=== PATIENT | female | born 1965 | race Caucasian/White ===

== ENCOUNTER 2016-06-28 12:53 | Emergency (ER) | payer SELFPAY ==
[~2016-06-28] VITALS: Ht 149.9 cm; Wt 66.2 kg
[2016-06-28 12:59] VITALS: BP 128/88; PULSE 102; RESP 16; TEMP 99.2; O2SAT 97
[2016-06-28] MEDS ORDERED: oxyCODONE/ACETAMINOPHEN 5 MG/325 MG TAB PO ONE (15:15)
[2016-06-28] MEDS ORDERED: PENI250T59 PO (15:18)
--- NOTE | 2016-06-28 15:19 | PD ---
HPI Chief Complaint: Oral / Dental Pain or Problem Time Seen by Provider: 14:58 Travel History International Travel<30 days: No Contact w/Intl Traveler<30days: No Traveled to known affect area: No History of Present Illness HPI 51-year-old female complains of pain swelling right side of the jaw. Patient states that she has history of dental pain for the past several weeks. Patient was seen by dentist in [place] and was given prescription prednisone and Lortab. Patient has an appointment with the dentist back in [place] for dental surgery. Patient states that she has increasing pain and swelling recently. Patient denies any fever chills. PFSH Past Medical History Medical History: Denies Significant Hx Tetanus Vaccination: < 5 Years Influenza Vaccination: No ?: Not LMP: Now Tubal Ligation: Yes Past Surgical History Section: Yes Social History Alcohol Use: No Tobacco Use: Yes Substance Use: No Allergies-Medications (Allergen,Severity, Reaction): Coded Allergies: Ibuprofen (Verified Allergy, Severe, Hives, 06/28/16) Amoxicillin (Verified Adverse Reaction, Severe, Sores in mouth, 06/28/16) Reported Meds & Prescriptions Reported Meds & Active Scripts Active No Active Prescriptions or Reported Medications Review of Systems General / Constitutional: No: Fever Eyes: No: Visual changes HENT: No: Headaches Cardiovascular: No: Chest Pain or Discomfort Respiratory: No: Shortness of Breath Gastrointestinal: No: Abdominal Pain Genitourinary: No: Dysuria Musculoskeletal: No: Pain Skin: No Rash Neurologic: No: Weakness Psychiatric: No: Depression Endocrine: No: Polydipsia Hematologic/Lymphatic: No: Easy Bruising Physical Exam Narrative GENERAL: Well-nourished, well-developed patient. SKIN: Warm and dry. HEAD: Normocephalic. EYES: No scleral icterus. No injection or drainage. NECK: Supple, trachea midline. No JVD or lymphadenopathy. CARDIOVASCULAR: Regular rate and rhythm without murmurs, gallops, or rubs. RESPIRATORY: Breath sounds equal bilaterally. No accessory muscle use. GASTROINTESTINAL: Abdomen soft, non-tender, nondistended. MUSCULOSKELETAL: No cyanosis, or edema. BACK: Nontender without obvious deformity. No CVA tenderness. Examination of the jaw reveals mild soft tissue swelling tenderness right lower gum area. No induration noted. Severe dental caries noted. Data Data Last Documented VS Vital Signs Date Time Temp Pulse Resp B/P Pulse Ox O2 Delivery O2 Flow Rate FiO2 06/28/16 12:59 99.2 102 16 128/88 97 Orders Oxycodone-Acetamin 5-325 Mg (Percocet (06/28/16 15:15) [facility] Medical Decision Making Medical Screen Exam Complete: Yes Emergency Medical Condition: Yes Differential Diagnosis Differential diagnosis including dental pain, dental abscess. Narrative Course 51-year-old female with dental pain and soft tissue swelling right lower gum area. Patient states that she has canker sore with amoxicillin however no problem with penicillin. Patient states that she is unable to take tramadol or anti-inflammatory medication. Advised Tylenol for pain. Diagnosis Primary Impression: Dental abscess Patient Instructions: Narcotic given in the ED Additional Instructions: Take medications as directed. Follow-up with the dentist in [place]. Stephanie Vega as directed Tylenol as directed. Med/Other Pt SpecificInfo: Prescription(s) given Scripts Penicillin V Potassium (Penicillin Vk)250 Mg Tab2 Tab PO Q6H #56 TAB Ref 0 Prov:Kevin Tirado MD 06/28/16 Disposition: 01 DISCHARGE HOME Condition: Stable Kevin Tirado MD Jun 28, 2016 15:19
== END 2016-06-28 15:30 | disposition home or self-care (01) ==
LOC: PHED 12:53 → PHEFT 15:30
DX: K04.7 Periapical abscess without sinus (principal); Z72.0 Tobacco use
CPT/HCPCS: 99282

== ENCOUNTER 2016-08-03 17:13 | Emergency (ER) | payer SELFPAY ==
[~2016-08-03] VITALS: Ht 149.9 cm; Wt 71.0 kg
[~2016-08-03 17:13] MED LIST: PENI250T59 PO
[2016-08-03 17:21] VITALS: BP 128/86; PULSE 88; RESP 18; TEMP 98.7; O2SAT 95
--- NOTE | 2016-08-03 17:46 | PD ---
HPI . dental pain and some facial swelling Chief Complaint: dental pain Time Seen by Provider: 17:45 Travel History International Travel<30 days: No Contact w/Intl Traveler<30days: No Traveled to known affect area: No History of Present Illness HPI 51-year-old female here with complaints of dental pain and some facial swelling. Patient was seen last month with similar complaints and treated with antibiotics. At that point she said she had a dental appointment in 2 weeks. It is now about a month later and she is still having the same issues. She tells me she was unable to return to [place] because her sister has been sick. Now she is telling me she has another appointment in 2 weeks with the dentist and was hoping that she could get antibiotics. She denies any fever, chills, fluid collection, nausea, vomiting, abdominal pain or other issues. She reports some pain in her gums and some facial swelling. Upon further discussion she tells me the facial swelling is very minimal compared to other episodes of facial swelling she has had in the past. She is aware that more than likely she does not have an abscess and needs to have these teeth extracted. She is just trying to buy some time until she sees the dentist. History Social History Alcohol Use: No Tobacco Use: Yes Allergies-Medications (Allergen,Severity, Reaction): Coded Allergies: Ibuprofen (Verified Allergy, Severe, Hives, 06/28/16) Amoxicillin (Verified Adverse Reaction, Severe, Sores in mouth, 06/28/16) Reported Meds & Prescriptions Reported Meds & Active Scripts Active Penicillin Vk (Penicillin V Potassium) 250 Mg Tab 2 Tab PO Q6H Review of Systems General / Constitutional: No: Fever Eyes: No: Visual changes HENT: Positive: Dental Difficulties, No: Headaches Cardiovascular: No: Chest Pain or Discomfort Respiratory: No: Shortness of Breath Gastrointestinal: No: Abdominal Pain Genitourinary: No: Dysuria Musculoskeletal: No: Pain Skin: No Rash Neurologic: No: Weakness Psychiatric: No: Depression Endocrine: No: Polydipsia Hematologic/Lymphatic: No: Easy Bruising Physical Exam Narrative GENERAL: AAO x 3, no acute distress, Well-nourished, well-developed patient. SKIN: Warm and dry. No visible rashes or bruising. HEAD: Normocephalic and atraumatic. EYES: No scleral icterus. No injection or drainage. ENT: No nasal drainage noted. Mucous membranes pink. Airway patent. Multiple dental caries without any evidence of infection. No abscess collection. very minimal facial swelling. NECK: Supple, trachea midline. No JVD. CARDIOVASCULAR: Regular rate and rhythm without murmurs, gallops, or rubs. RESPIRATORY: Breath sounds equal bilaterally. No accessory muscle use. No rhonchi or rales. GASTROINTESTINAL: Abdomen soft, non-tender, nondistended. EXTREMITIES: No cyanosis or edema. BACK: Nontender without obvious deformity. No CVA tenderness. PSYCH: AAO x 3, normal affect. Data Data Last Documented VS Vital Signs Date Time Temp Pulse Resp B/P Pulse Ox O2 Delivery O2 Flow Rate FiO2 08/03/16 17:21 98.7 88 18 128/86 95 Room Air MDM Medical Screen Exam Complete: Yes Emergency Medical Condition: No Differential Diagnosis dental caries, less likely dental abscess Narrative Course 51-year-old female here with complaints of dental pain and some facial swelling. Patient was seen last month with similar complaints and treated with antibiotics. At that point she said she had a dental appointment in 2 weeks. It is now about a month later and she is still having the same issues. She tells me she was unable to return to [place] because her sister has been sick. Now she is telling me she has another appointment in 2 weeks with the dentist and was hoping that she could get antibiotics. She denies any fever, chills, fluid collection, nausea, vomiting, abdominal pain or other issues. She reports some pain in her gums and some facial swelling. Upon further discussion she tells me the facial swelling is very minimal compared to other episodes of facial swelling she has had in the past. She is aware that more than likely she does not have an abscess and needs to have these teeth extracted. She is just trying to buy some time until she sees the dentist. Is no evidence of acute infection. There is no definitive abscess collection. Patient has very minimal facial swelling. Was advised that she needs to see a dentist for full extractions of all of her teeth. She has multiple rotting teeth and they are likely causing her issues. A medical screening exam was performed: At the time of evaluation the presenting medical condition was determined not to be of an emergent nature. The patient was given the option of receiving additional care, but declined. Patient was given options for additional community resources from which to obtain care. The Patient Has Been advised to seek medical attention for their presenting complaint. The patient has been advised to return to the ER at any time if an emergent condition develops. Primary Impression: Dental caries Condition: Stable Treasure Orellana Aug 03, 2016 17:46
== END 2016-08-03 17:59 | disposition left against medical advice (07) ==
LOC: PHEFT 17:13
DX: K02.9 Dental caries, unspecified (principal)
CPT/HCPCS: 99281

== ENCOUNTER 2016-09-09 09:15 | Emergency (ER) | payer SELFPAY ==
[~2016-09-09] VITALS: Ht 149.9 cm; Wt 64.0 kg
[2016-09-09 09:17] VITALS: BP 113/75; PULSE 77; RESP 17; TEMP 98.7; O2SAT 98
--- NOTE | 2016-09-09 09:47 | PD ---
HPI . Dental pain Chief Complaint: Oral / Dental Pain or Problem Time Seen by Provider: 09:46 Travel History International Travel<30 days: No Contact w/Intl Traveler<30days: No Traveled to known affect area: No History of Present Illness HPI Patient presents with dental pain for 1-1/2 months. She states that she presents to us today because now her face is swollen. She states that she is here visiting from [place] for a prolonged period of time. She states that she has an appointment to see her dentist when she returns to [place] in early September. The nurse actually got the history that the appointment is not until first part of October. Patient rates her pain as 10/10. She describes a constant, achy pain with no modifying factors. [facility] Past Medical History Medical History: Denies Significant Hx Hx Anticoagulant Therapy: Yes (ASPIRIN) Diminished Hearing: No Tetanus Vaccination: < 5 Years Influenza Vaccination: No ?: Not LMP: 09/02/2016 Tubal Ligation: Yes Past Surgical History Section: Yes Gynecologic Surgery: Yes Social History Alcohol Use: No Tobacco Use: Yes (1/2 ppd) Substance Use: No Allergies-Medications (Allergen,Severity, Reaction): Coded Allergies: Ibuprofen (Verified Allergy, Severe, Hives, 09/09/16) Penicillin (Verified Allergy, Intermediate, MOUTH SORES, 09/09/16) Amoxicillin (Verified Adverse Reaction, Severe, Sores in mouth, 09/09/16) Reported Meds & Prescriptions Reported Meds & Active Scripts Active No Active Prescriptions or Reported Medications Review of Systems Except as stated in HPI: all other systems reviewed are Neg General / Constitutional: No: Fever, Chills HENT: Positive: Dental Difficulties, Other Physical Exam Narrative GENERAL: Awake and alert and in no acute distress. SKIN: Warm and dry. HEAD: Atraumatic. Normocephalic. She has visible swelling of the left cheek with some tenderness to palpation. All of her teeth are in very poor repair. She basically has nubs. She has some gingival edema and erythema, left maxillary. EYES: Pupils equal and round. NECK: Trachea midline. No cervical lymphadenopathy. CARDIOVASCULAR: Regular rate and rhythm. RESPIRATORY: No accessory muscle use. MUSCULOSKELETAL: No obvious deformities. No edema. NEUROLOGICAL: Awake and alert. No obvious cranial nerve deficits. Motor grossly within normal limits. Normal speech. PSYCHIATRIC: Appropriate mood and affect; insight and judgment normal. Data Data Last Documented VS Vital Signs Date Time Temp Pulse Resp B/P Pulse Ox O2 Delivery O2 Flow Rate FiO2 09/09/16 09:17 98.7 77 17 113/75 98 MDM Medical Decision Making Medical Screen Exam Complete: Yes Emergency Medical Condition: Yes Medical Record Reviewed: Yes (I have reviewed her records. This patient has actually been here twice with the exact same complaint. She was seen here on June 28 and treated with penicillin she was seen here again on August 03 and screened out. Both times, she stated that she was going to see the dentist within 2 weeks. She has still not seen the dentist.) Differential Diagnosis Differential diagnosis of a toothache includes but is not limited to dental caries, dental abscess, gingivitis, drug-seeking behavior. Narrative Course Patient presents complaining with dental pain. She has a dental abscess on exam. Diagnosis Primary Impression: Dental abscess Patient Instructions: General Instructions, Toothache (ED) Med/Other Pt SpecificInfo: Prescription(s) given Scripts Clindamycin (Cleocin)300 Mg Rib224 Mg PO Q8H 10 Days Ref 0 Prov:Elizabeth Dangelo MD 09/09/16 Disposition: 01 DISCHARGE HOME Condition: Stable Elizabeth Dangelo MD Sep 09, 2016 09:47
[2016-09-09] MEDS ORDERED: CLEO300C2 PO (09:59)
== END 2016-09-09 10:13 | disposition home or self-care (01) ==
LOC: NEPD 09:15
DX: K04.7 Periapical abscess without sinus (principal); F17.210 Nicotine dependence, cigarettes, uncomplicated
CPT/HCPCS: 99283